=== PATIENT | female | born 1975 | race Caucasian/White ===

== ENCOUNTER → 2021-01-01 | Outpatient (REF) ==
--- NOTE | 2021-01-01 11:37 | REP ---
INDICATION: PAIN COMPARISON: None. TECHNIQUE: AP, lateral, coned-down views of the lumbar spine. FINDINGS: Three views of the lumbosacral spine demonstrate satisfactory alignment and lordosis without acute fracture / compression injury or subluxation. Endplate sclerosis, and disc space narrowing at L5-S1 noted. Remainder of the examination demonstrates mild age-related changes including subtle endplate sclerosis with marginal spurring but relatively maintained disc spaces. IMPRESSION: 1. No acute fracture / compression injury or subluxation. 2. Moderate degenerative spondylosis at L5-S1. Mild age-related degenerative changes throughout the remainder of the lumbosacral spine. <Electronically signed by Jimmy Roe > 01/01/21 [id number]
--- NOTE | 2021-01-01 11:45 | REP ---
INDICATION: PAIN COMPARISON: None. TECHNIQUE: AP, lateral, swimmer's and open-mouth views. FINDINGS: Mild reversal of normal lordosis noted along with moderate/early advanced multilevel degenerative changes including endplate sclerosis, osteophytosis and disc space narrowing primarily involving C5-6 and C6-7. No evidence for acute fracture/compression injury or subluxation. Open mouth view demonstrates normal C1-C2 articulation and odontoid process. IMPRESSION: Reversal of normal lordosis and moderate/early advanced multifocal degenerative changes. <Electronically signed by Jimmy Roe > 01/01/21 [id number]
== END ==
LOC: M PLAIMG 10:39
PROVIDERS: ATTEND Internal Medicine
DX: M43.07 Spondylolysis, lumbosacral region (principal); M50.323 Other cervical disc degeneration at C6-C7 level